=== PATIENT | male | born 1990 | race African-American/Black ===

== ENCOUNTER 2021-05-14 05:10 | Emergency (ER) | payer OTHER, MEDICAID ==
[~2021-05-14] VITALS: Ht 182.9 cm; Wt 65.0 kg
[2021-05-14] MEDS ORDERED: PREDNISONE 20MG TABLET PO ONE (05:45)
[2021-05-14] MEDS ORDERED: ALBU6.7H9 INH (05:57)
[2021-05-14] MEDS ORDERED: ALBU05 NEB (05:58)
[2021-05-14] MEDS ORDERED: P50 MT (05:58)
[2021-05-14 06:13] VITALS: BP 117/66
== END 2021-05-14 08:45 | disposition home or self-care (01) ==
LOC: ER 05:31
DX: J45.901 Unspecified asthma with (acute) exacerbation (principal); Z79.899 Other long term (current) drug therapy; Z88.0 Allergy status to penicillin
CPT/HCPCS: 93005; 99283; J7512